=== PATIENT | male | born 1965 | race Caucasian/White ===

== ENCOUNTER 2017-07-19 18:52 | Emergency (ER) | payer OTHER ==
[~2017-07-19] VITALS: Ht 170.2 cm; Wt 75.0 kg
[2017-07-19 18:52] VITALS: BP 148/95; PULSE 83; RESP 14; TEMP 98.3; O2SAT 96
[2017-07-19] MEDS ORDERED: DOXYCYCLINE HYCLATE 100 MG CAP PO ONE (19:00)
[2017-07-19] MEDS ORDERED: CIPROFLOXACIN 500 MG TAB PO ONE (19:00)
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
[2017-07-19] MEDS ORDERED: CIPR-9 PO (19:02)
[2017-07-19] MEDS ORDERED: DOXY100C PO (19:02)
[2017-07-19] MEDS ORDERED: TETANUS/DIPHTHERIA TOXOID ADULT 0.5 ML VIAL IM ONE (19:15)
== END 2017-07-19 19:32 | disposition home or self-care (01) ==
LOC: NEDAMB 18:52
DX: S91.331A Puncture wound without foreign body, right foot, initial encounter (principal); Z23 Encounter for immunization; W45.0XXA Nail entering through skin, initial encounter; Y92.89 Other specified places as the place of occurrence of the external cause
CPT/HCPCS: 90471; 90714; 96372